=== PATIENT | female | born 1980 | race Caucasian/White ===

== ENCOUNTER → 2016-06-10 | Outpatient (CLI) | payer OTHER ==
[~2016-06-10] MED LIST: ASPI1TAB69 PO; DILA4TAB2 PO; FLUO10CA5 PO; IBUP200T2 PO; INUL1CHW2 CHEW; LEVE750T8 PO; MORP1TAB25 PO; OMEP20TA PO; PERI8.6T PO; ROSU20 PO; TOPI200T7 PO
== END ==
LOC: CPRE 10:49
PROVIDERS: ATTEND Obstetrics & Gynecology
DX: N92.0 Excessive and frequent menstruation with regular cycle (principal)

== ENCOUNTER 2016-06-12 05:44 | Observation (INO) | payer OTHER ==
--- NOTE | 2016-06-10 12:54 | MH ---
cc: IVELISSE CLINE DATE OF ADMISSION: 06/12/2016 DATE OF : 1980 SCHEDULED PROCEDURE Laparoscopic-assisted vaginal hysterectomy and bilateral salpingectomy. ADMISSION DIAGNOSIS Severe dysmenorrhea, menorrhagia and persistent cervical dysplasia. 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 This has changed her quality of life considerably. She has had to be in pain intervention. 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 She has not been able to have a decent quality of life for a number of years. She is also having menometrorrhagia and she cannot use oral contraceptives because of her migraines. Her persistent abnormal Pap smears have exceeded 10 years with one cone biopsy and many colposcopies. She finds her bleeding unacceptable therefore we have decided to proceed with a laparoscopic-assisted vaginal hysterectomy to address all these issues. SOCIAL HISTORY She is a former smoker, does not smoke at this time. She does not drink or use illicit drugs. She is on a fairly significant dose of opioids for maintenance and the recently acute addition for a fracture of her left forearm. Her pain specialist is Dr. Tor Munoz and his phone number is [phone]. Her neurologist is Dr. Marcie Patel. Her recent orthopedic surgeon for her wrist was Dr. Fadi Morley, and her primary care is Dr. Denise. PAST MEDICAL HISTORY Her other medical conditions include: 1. Depression. 2. Hyperlipidemia. 3. GERD. MEDICATIONS Her medications at this time are: 1. Fluoxetine 10 mg daily. 2. Currently she is weaning off Dilaudid 4 mg daily for her orthopedic break. 3. Topiramate 100 mg daily for headaches and seizures. 4. Keppra 750 mg daily for her seizures. 5. Omeprazole 20 mg daily. 6. Crestor 20 mg daily. 7. Morphine 30 mg extended release b.i.d. 8. Aspirin 81 mg, but has stopped that. ALLERGIES 1. CYMBALTA. 2. DEPAKOTE. REVIEW OF SYSTEMS She denies any other chronic or systemic illnesses. FAMILY HISTORY Noncontributory. PHYSICAL EXAMINATION GENERAL: She is a slim white female in no obvious distress. VITAL SIGNS: Weight 117, height 5 feet 7 inches. Blood pressure 120/70. NECK: She has no thyroid enlargement. LUNGS: Her lungs are clear. HEART: Heart is regular. BREASTS: Without dominant mass, nipple discharge, skin retraction. ABDOMEN: Benign, scaphoid. No hepatosplenomegaly. PELVIC: Perineum is estrogenized. Vault is elevated. Cervix is nulliparous without descent. Uterus is anteverted, mobile, nontender. Ovaries are not palpable. Previous guaiac was negative. EXTREMITIES: Unremarkable. IMPRESSION 1. Persistent dysplasia. 2. Severe menometrorrhagia. 3. Seizures and migraines that preclude the use of oral contraceptives. 4. Desire to not have children. PLAN The plan is to proceed with LAVH and bilateral salpingectomy. The risks, benefits, expectations and alternatives have been described in great detail over many visits. We have talked about her opioid maintenance and how we are going to work strictly with Dr. Munoz for her acute postoperative pain. He is supposed to call me tomorrow to review. She will have her surgery on . Ivelisse Cline MD PPC/BT /12:32 PM /12:42 PM
[2016-06-12] VITALS (7 sets, daily range): BP systolic 76–95; BP diastolic 46–62; PULSE 60–76; RESP 16–18; TEMP 97.6–98.5; O2SAT 98–100
[~2016-06-12] VITALS: Ht 167.6 cm; Wt 52.6 kg
[~2016-06-12 05:44] MED LIST changes: -DILA4TAB2 PO
[2016-06-12] MEDS ORDERED: CHLORHEXIDINE GLUCONATE 2 % 1 PACK (2 CLOTHS) TOPICAL PRN (06:15)
[2016-06-12] MEDS ORDERED: LACTATED RINGER'S 1000 ML IV PRN (06:15)
[2016-06-12] MEDS ORDERED: SODIUM CHLORID 0.9% 500 ML IV PRN (06:15)
[2016-06-12] MEDS ORDERED: INSULIN HUMAN REGULAR 1,000 UNITS/10 ML VIAL SQ PRN (06:15)
[2016-06-12] MEDS ORDERED: ceFAZolin 1,000 MG/NS 100 ML IV SCH ×2 (06:15)
[2016-06-12] MEDS ORDERED: POVIDONE IODINE 5% (ANTISEPSIS KIT) 4 APPLICATIONS EACH NARE PRN (06:15)
[2016-06-12] MEDS ORDERED: METOPROLOL TARTRATE 25 MG TAB PO PRN (06:15)
[2016-06-12] MEDS ORDERED: DILA4TAB2 PO (06:41)
[2016-06-12] MEDS ORDERED: BUPIVACAINE/EPINEPHRINE 0.25% PF 30 ML VIAL ONE (07:05)
[2016-06-12] MEDS ORDERED: VASOPRESSIN INJ 20 UNITS/ML VIAL ONE (07:05)
[2016-06-12] MEDS ORDERED: ESTROGENS CONJUGATED VAG CREA 15 APPL/30 GM TUBE ONE (07:05)
[2016-06-12] MEDS ORDERED: MIDAZOLAM HCL 2 MG/2 ML VIAL ONE (07:15)
[2016-06-12] MEDS ORDERED: fentaNYL CITRATE 250 MCG/5 ML AMP ONE (07:15)
[2016-06-12] MEDS ORDERED: ACETAMINOPHEN 1000 MG/100 ML VIAL IV ONE (07:15)
[2016-06-12] MEDS ORDERED: DEXAMETHASONE SOD PHOS 4 MG/ML VIAL ONE (07:16)
[2016-06-12] MEDS ORDERED: HYDROmorphone HCL PF 2 MG/ML VIAL ONE (07:16)
[2016-06-12] MEDS ORDERED: DICLOFENAC SODIUM 37.5 MG/ML VIAL IV PUSH ONE (07:16)
--- NOTE | 2016-06-12 09:39 | PD.OP ---
Operative Report Date of Surgery: Jun 12, 2016 Preoperative Diagnosis: persistent cervical dysplasia, severe dysmenorrhea and menorrhagia Postoperative Diagnosis: same Procedure: LAVH with bilateral salpingectomy both ovaries left in place enterocele cystoscopy Anesthesia: GET Surgeon: Ivelisse Begum Manager Of Medical(s): Omi MS3 Operation and Findings: dictated EBL < 100 Ivelisse Begum MD Jun 12, 2016 09:39
[2016-06-12] MEDS ORDERED: LORazepam 0.5 MG TAB PO PRN (09:45)
[2016-06-12] MEDS ORDERED: SODIUM CHLORIDE 0.9% FLUSH 10 ML FLUSH IV FLUSH PRN (09:45)
[2016-06-12] MEDS ORDERED: ACETAMINOPHEN 1000 MG/100 ML VIAL IV PRN (09:45)
[2016-06-12] MEDS ORDERED: ONDANSETRON HCL 4 MG/2 ML VIAL IVP PRN (09:45)
[2016-06-12] MEDS ORDERED: PROMETHAZINE HCL 25 MG TAB PO PRN (09:45)
[2016-06-12] MEDS ORDERED: diphenhydrAMINE HCL 25 MG CAP PO PRN (09:45)
--- NOTE | 2016-06-12 09:52 | HHI.DCPOC ---
Discharge Care Plan Report Symptoms to Your Doctor -Temperate above 100.5 degrees -Redness, of incision or excessive or foul smelling drainage -Unusual pain or calf pain -Increased vaginal bleeding -Painful or difficulty urinating -Feelings of extreme sadness or anxiety after 2 weeks Goals to Promote Your Health * To prevent worsening of your condition and complications * To maintain your health at the optimal level Directions to Meet Your Goals Take your medications as prescribed Follow your dietary instruction Follow activity as directed Ensure plenty of rest for recovery Drink fluids for hydration Keep your appointments as scheduled Take your immunizations and boosters as scheduled If your symptoms worsen call your PCP, if no PCP go to Urgent Care Center or Emergency Room Smoking is Dangerous to Your Health. Avoid second hand smoke Call the 24-hour crisis hotline for domestic abuse at Ivelisse Begum MD Jun 12, 2016 09:52
[2016-06-12] MEDS ORDERED: DO NOT ADM ANY ANTICOAGULANT DRUGS PRN (10:00)
[2016-06-12] MEDS: LACTATED RINGER'S 1000 ML INJ 1,000 ML IV SCH ×2 (10:16→16:25)
[2016-06-12] MEDS ORDERED: ONDANSETRON HCL 4 MG/2 ML VIAL IV PUSH ONE (10:25)
[2016-06-12] MEDS ORDERED: PROPOFOL 200 MG/20 ML AMP IV ONE (10:25)
[2016-06-12] MEDS ORDERED: ePHEDrine/NS 25 MG/5 ML SYR IV ONE (10:25)
[2016-06-12] MEDS ORDERED: *morphine SULFATE 8 MG/ML PERIprocedure ONLY ONE ×2 (10:36→12:01)
[2016-06-12] MEDS ORDERED: PILL SPLITTER OTHER PRN (10:45)
[2016-06-12] MEDS: KETOROLAC TROMETHAMINE 30 MG/ML (IVP) VIAL IVP SCH ×3 (11:00→23:13)
[2016-06-12] MEDS: DOCUSATE SODIUM 100 MG CAP PO SCH ×2 (11:00→21:21)
[2016-06-12] MEDS ORDERED: BUPIVACAINE LIPOSOME PF 1.3% 20 ML VIAL ONE (12:20)
[2016-06-12] MEDS: MORPHINE SULFATE 30 MG CONTROLLED RELEASE TAB PO SCH ×2 (13:34→21:20)
[2016-06-12] MEDS: TOPIRAMATE 200 MG TAB PO SCH ×2 (14:34→21:19)
[2016-06-12] MEDS ORDERED: SODIUM CHLORIDE 0.9% FLUSH 10 ML FLUSH IV FLUSH SCH (21:00)
[2016-06-12] MEDS ORDERED: ZOLPIDEM TARTRATE 5 MG TAB PO PRN (21:00)
[2016-06-12] MEDS: DOCUSATE SODIUM 50 MG/SENNA 8.6 MG TAB PO SCH (21:19)
[2016-06-12] MEDS: levETIRAcetam 250 MG TAB PO SCH (21:19)
[2016-06-12] MEDS: HYDROmorphone HCL 4 MG TAB PO PRN (21:21)
[2016-06-13] MEDS: LACTATED RINGER'S 1000 ML INJ 1,000 ML IV SCH (01:37)
[2016-06-13] MEDS: TOPIRAMATE 200 MG TAB PO SCH (05:09)
[2016-06-13] MEDS: MORPHINE SULFATE 30 MG CONTROLLED RELEASE TAB PO SCH (05:09)
[2016-06-13] MEDS: KETOROLAC TROMETHAMINE 30 MG/ML (IVP) VIAL IVP SCH (05:09)
[2016-06-13 05:12] VITALS: BP 86/52; PULSE 84; RESP 16; TEMP 97.6; O2SAT 100
[2016-06-13 06:02] LABS: AUTOMATED NEUTROPHIL # 5.5 TH/MM3 (1.8-7.7); BASOPHIL % 0.2 % (0.0-2.0); EOSINOPHIL % 0.3 % (0.0-4.0); HEMATOCRIT 32.1 % (35.0-46.0); HEMO FLAGS DIFF FINAL; LYMPH % 22.2 % (9.0-44.0); LYMPHOCYTE # 1.7 TH/MM3 (1.0-4.8); MEAN CORPUSCULAR HEMOGLOBIN 31.7 PG (27.0-34.0); MEAN CORPUSCULAR HGB CONC 32.7 % (32.0-36.0); MONO % 5.8 % (0.0-8.0); NEUT % 71.5 % (16.0-70.0); PLATELET COUNT 180 TH/MM3 (150-450); RED BLOOD COUNT 3.31 MIL/MM3 (4.00-5.30); RED CELL DISTRIBUTION WIDTH 12.5 % (11.6-17.2); WHITE BLOOD COUNT 7.7 TH/MM3 (4.0-11.0)
[2016-06-13] MEDS: HYDROmorphone HCL 4 MG TAB PO PRN (06:03)
[2016-06-13 06:23] LABS: BICARBONATE 25.4 MEQ/L (21.0-32.0); POTASSIUM 3.2 MEQ/L (3.5-5.1)
--- NOTE | 2016-06-13 08:00 | HHI.PR ---
Subjective Remarks Doing well, pain is well controlled, within context of her pain management mild RLQT Objective Vital Signs Vital Signs Date Time Temp Pulse Resp B/P Pulse Ox O2 Delivery O2 Flow Rate FiO2 06/13/16 05:12 97.6 84 16 86/52 100 06/12/16 23:14 98.3 76 16 76/46 99 06/12/16 20:22 98.2 68 16 85/50 100 06/12/16 16:19 60 16 90/53 99 06/12/16 13:34 60 88/53 98 06/12/16 13:15 98 Room Air 21 06/12/16 12:52 97.6 69 16 82/46 99 06/12/16 12:15 98.2 61 10 96/54 98 Room Air 06/12/16 12:00 71 10 97/56 99 Room Air 06/12/16 11:45 65 10 99/56 100 Room Air 06/12/16 11:30 64 10 92/55 100 Nasal Cannula 2 06/12/16 11:15 71 11 87/57 100 Nasal Cannula 2 06/12/16 11:00 59 10 90/50 100 Nasal Cannula 2 06/12/16 10:45 58 10 85/51 100 Nasal Cannula 2 06/12/16 10:30 63 10 92/53 99 Nasal Cannula 2 06/12/16 10:15 63 10 91/52 99 Nasal Cannula 2 06/12/16 10:00 75 20 91/53 100 Nasal Cannula 2 06/12/16 09:58 97.6 102 20 97/64 100 Nasal Cannula 2 I/O 06/12/16 06/12/16 06/12/16 06/13/16 06/13/16 06/13/16 07:00 15:00 23:00 07:00 15:00 23:00 Intake Total 1282 ml 1126 ml 923 ml Output Total 650 ml 1250 ml 750 ml Balance 632 ml -124 ml 173 ml Intake Oral 20 ml IV Total 462 ml 1126 ml 923 ml Other 800 ml Output Urine Total 600 ml 1250 ml 750 ml Estimated Blood Loss 50 ml Result Diagram: 06/13/16 0533 06/13/1633 Objective Remarks Chest is clear, regular rate and rhythm. Abdomen is soft and non-distended. Incisions clean and dry. perineum dry Ext no CCE. A/P Assessment and Plan Post Op Day 1 Doing well Home today and return to office in one week. Ivelisse Begum MD Jun 13, 2016 08:00
--- NOTE | 2016-06-13 08:01 | HHI.DCPOC ---
Discharge Care Plan Report Symptoms to Your Doctor -Temperate above 100.5 degrees -Redness, of incision or excessive or foul smelling drainage -Unusual pain or calf pain -Increased vaginal bleeding -Painful or difficulty urinating -Feelings of extreme sadness or anxiety after 2 weeks Goals to Promote Your Health * To prevent worsening of your condition and complications * To maintain your health at the optimal level Directions to Meet Your Goals Take your medications as prescribed Follow your dietary instruction Follow activity as directed Ensure plenty of rest for recovery Drink fluids for hydration Keep your appointments as scheduled Take your immunizations and boosters as scheduled If your symptoms worsen call your PCP, if no PCP go to Urgent Care Center or Emergency Room Smoking is Dangerous to Your Health. Avoid second hand smoke Call the 24-hour crisis hotline for domestic abuse at Ivelisse Begum MD Jun 13, 2016 08:01
[2016-06-13] MEDS ORDERED: FLUoxetine HCL 10 MG CAP PO SCH (09:00)
[2016-06-13] MEDS: DOCUSATE SODIUM 50 MG/SENNA 8.6 MG TAB PO SCH (09:48)
[2016-06-13] MEDS: levETIRAcetam 250 MG TAB PO SCH (09:56)
--- NOTE | 2016-06-14 19:21 | MP ---
cc: DANIE CLINE DATE OF SURGERY 06/12/16 POSTOPERATIVE DIAGNOSIS Persistent cervical dysplasia, dysmenorrhea and menorrhagia not amenable to less aggressive techniques. PROCEDURE Laparoscopically assisted vaginal hysterectomy and bilateral salpingectomy. Both ovaries were left in place. She also had an enterocele repair and cystoscopy. ANESTHESIA General endotracheal SURGEON Rogers Cline MD LACING OPERATOR Omi, MS III FINDINGS The patient had a small mobile uterus with a friable cervix. On entering the peritoneal cavity, liver edge, gallbladder, appendix were all normal. There were no adhesions. There was no infection, no sign of cancer. Her ovaries were fairly juicy, almost polycystic in nature. They were left in place. The uterus and tubes were removed easily with minimal bleeding and enterocele obliteration was performed and evaluation laparoscopically after the vaginal portion of the case was reassuring. Cystoscopy showed no iatrogenic injury or intrinsic pathology. Estimated blood loss was about 100 mL. She tolerated the procedure well and went to recovery. PROCEDURE IN DETAIL The patient was identified as Kelley Munson in the preoperative holding. Her permit was reviewed. She was taken to the operating room, placed under general endotracheal anesthesia with care to avoid hyperextension of her hip. She was prepped and draped in usual sterile fashion. A Sheikh catheter was placed. She had received 1 gram of Ancef IV within an hour of incision. A time-out was performed with all in attendance. Examination under anesthesia was performed. The cervix was grasped with a single-tooth tenaculum and an acorn tenaculum was placed in the os. Attention was directed to the abdomen. A 5 mm incision was made in the umbilicus, a second 5 mm incision in the right lower quadrant and a third in the left lower quadrant. These were done with transillumination. Two liters of CO2 were instilled into the peritoneal cavity and then systematic evaluation of the abdominal and pelvic contents was performed with the findings as noted above. The right round ligament was grasped, transected and the anterior leaf of the broad ligament dissected off the lower uterine segment. The right tube was placed on gentle medial traction and dissected off the tubo-ovarian ligament and pedicles were taken down to meet the round ligament and then down to the level of the uterosacral with care to push the ureter laterally and inferiorly. A bladder flap was created. This was repeated on the opposite side in the same fashion. The gas was then released. Attention was directed to the perineum. The cervix was infiltrated with Marcaine with epinephrine and circumcised with a Bovie on cutting. The anterior and posterior cul-de-sacs were entered sharply and the uterus placed for visualization and protection of other structures. Uterosacrals were clamped, cut and suture ligated and then additional pedicles were clamped, cut and suture ligated until the uterus and tubes were removed from the field. There was no bleeding. The enterocele was repaired with a Vicryl in a classic Moschcowitz fashion. The uterosacrals were plicated. The vagina was closed in a vertical running locking suture. Attention was redirected to the abdomen and pelvic lavage was performed and all pedicles were examined and noted to be hemostatic. It was visualized under release of pressure to make sure there were no other areas of oozing. Then the Sheikh catheter was used to fill the bladder with the suction jogger operator and the scope was placed into the bladder to see both ureteral orifices and healthy but somewhat inflamed bladder mucosa. The Sheikh was then replaced. She was placed in dorsal supine position, awaken and taken to the recovery room in stable condition. MD RICARDO Sotelo/ /9:57 AM /7:07 PM MTDKacy
== END 2016-06-13 12:38 | disposition home or self-care (01) ==
LOC: HSDC 05:44 → HSDI 09:45 → H1EA 12:43
PROVIDERS: ADMIT Obstetrics & Gynecology; ATTEND Obstetrics & Gynecology
DX: N92.1 Excessive and frequent menstruation with irregular cycle (principal); N87.9 Dysplasia of cervix uteri, unspecified; N94.6 Dysmenorrhea, unspecified; K46.9 Unspecified abdominal hernia without obstruction or gangrene; G40.909 Epilepsy, unspecified, not intractable, without status epilepticus; F32.9 Major depressive disorder, single episode, unspecified; E78.5 Hyperlipidemia, unspecified; K21.9 Gastro-esophageal reflux disease without esophagitis; G43.909 Migraine, unspecified, not intractable, without status migrainosus; M19.90 Unspecified osteoarthritis, unspecified site; Z87.891 Personal history of nicotine dependence; Z79.82 Long term (current) use of aspirin; Z88.8 Allergy status to other drugs, medicaments and biological substances
CPT/HCPCS: 57268; 58552; 80048; 82306; 82310; 83970; 85025; 86850; 86900; 86901; 88307; 94150; 94762; C9290; G0378; J0131; J0690; J1100; J1130; J1170; J1885; J2250; J2270; J2405; J3010; J7120